=== PATIENT | male | born 1940 ===

== ENCOUNTER 2019-07-21 06:43 | Inpatient (IN) ==
[2019-07-15 11:32] LABS: Appearance,Urine CLEAR; Bilirubin,Urine NEG (NEG); Color,Urine YELLOW; Culture Indicated,Urine NO; Glucose,Urine (UA) NEGATIVE (NEG); Ketones,Urine NEG (NEG); Leukocyte Esterase,Urine NEG /uL (NEG); Nitrate,Urine NEG (NEG); Protein,Urine NEG (NEG); Urine Blood NEG mg/dL (<0.03); Urobilinogen,Urine NEG (NEG)
[2019-07-15 13:08] LABS: Basophils # (Auto) 0 K/mcL (0.0-0.3); Basophils % (Auto) 0.4 % (0.0-2.0); Eosinophils # (Auto) 0.2 K/mcL (0.0-0.7); Eosinophils % (Auto) 3.7 % (0.0-7.0); Granulocytes % (Auto) 62.9 % (38.0-78.0); Hematocrit 46.8 % (41.0-55.0); Hemoglobin 15.2 g/dL (13.5-16.5); Lymphocytes # (Auto) 1.3 K/mcL (1.5-4.8); Lymphocytes % (Auto) 21.5 % (15.5-49.0); Mean Cell Volume 89.5 fL (80.0-100.0); Mean Corpuscular HGB Conc 32.6 g/dL (31.0-36.0); Mean Platelet Volume 8.3 fL (7.4-10.4); Monocytes # (Auto) 0.7 K/mcL (0.1-0.9); Monocytes % (Auto) 11.5 % (1.0-12.0); Platelet Count 222 K/mcL (140-440); RBC 5.23 M/mcL (4.50-5.90); Red Cell Distribution Width 14.4 % (11.5-14.5); WBC 5.9 K/mcL (4.5-11.0)
[2019-07-15 13:09] LABS: Blood Urea Nitrogen 18 mg/dl (8-23); Calcium 9.2 mg/dl (8.6-10.4); Carbon Dioxide 23 mmol/L (22-30); Chloride 103 mmol/L (96-108); Glomerular Filtration Rate 86; Glucose 103 mg/dL (70-105)
[2019-07-15 13:10] LABS: INR 0.9 (0.9-1.1); Prothrombin Time 12.5 sec (11.9-14.5)
[~2019-07-21 06:43] MED LIST: CELECOXIB 200 MG CAPSULE PO SCH; IPRATROPIUM/ALBUTEROL 3 ML AMPUL.NEB NEB PRN; PREGABALIN 75 MG CAPSULE PO SCH; SCOPOLAMINE 1 PATCH PATCH TOPICAL PRN; ceFAZolin 2 GM in DEXTROSE 5% IN WATER 50 ML IV SCH; oxyCODONE 10 MG TAB.ER.12H PO SCH
[2019-07-21] MEDS ORDERED: GENTAMICIN SULFATE 800 MG/20 ML VIAL IR ONE (07:21)
[2019-07-21] MEDS ORDERED: PHENYLEPHRINE 10 MG/ML VIAL IV ONE (10:03)
[2019-07-21] MEDS ORDERED: TRANEXAMIC ACID 1,000 MG/10 ML VIAL IV ONE ×2 (10:03→11:27)
[2019-07-21] MEDS ORDERED: KETAMINE 100 MG/ML ML IV ONE (10:03)
[2019-07-21] MEDS ORDERED: ONDANSETRON 4 MG/2 ML VIAL IV ONE (10:03)
[2019-07-21] MEDS ORDERED: PROPOFOL 200 MG/20 ML VIAL IV ONE (10:03)
[2019-07-21] MEDS ORDERED: LIDOCAINE HCL/PF 100 MG/5 ML SYRINGE IV ONE (10:03)
[2019-07-21] MEDS ORDERED: DEXAMETHASONE 10 MG/ML VIAL IV ONE (10:03)
[2019-07-21] MEDS ORDERED: GLYCOPYRROLATE 0.2 MG/ML VIAL IV ONE (10:03)
[2019-07-21] MEDS ORDERED: fentaNYL 100 MCG/2 ML VIAL IV PRN (10:34)
[2019-07-21] MEDS ORDERED: ACETAMINOPHEN 1,000 MG/100 ML BOTTLE IV ONE (10:34)
[2019-07-21] MEDS ORDERED: LABETALOL 5 MG/ML ML IV PRN (10:34)
[2019-07-21] MEDS ORDERED: FLUMAZENIL 0.1 MG/ML ML IV PRN (10:34)
[2019-07-21] MEDS ORDERED: METHOCARBAMOL 1,000 MG/10 ML VIAL IV PRN (10:34)
[2019-07-21] MEDS ORDERED: NALOXONE HCL 0.4 MG/ML VIAL IV PRN (10:34)
[2019-07-21] MEDS ORDERED: BENZOCAINE/MENTHOL 1 LOZENGE PO PRN ×2 (10:34→11:27)
[2019-07-21] MEDS ORDERED: IPRATROPIUM/ALBUTEROL 3 ML AMPUL.NEB NEB PRN (10:34)
[2019-07-21] MEDS ORDERED: MEPERIDINE 25 MG/ML SYRINGE IV PRN (10:34)
[2019-07-21] MEDS ORDERED: LACTATED RINGERS 250 ML IV PRN (10:34)
[2019-07-21] MEDS ORDERED: METOPROLOL TARTRATE 5 MG/5 ML VIAL IV PRN (10:34)
[2019-07-21] MEDS ORDERED: ONDANSETRON 4 MG/2 ML VIAL IV PRN ×2 (10:34→11:27)
[2019-07-21] MEDS ORDERED: LACTATED RINGERS 1,000 ML IV SCH ×2 (10:45→11:30)
--- NOTE | 2019-07-21 11:26 | Discharge Summary ---
Ortho Discharge - JOEL - Patient Instructions Diet: Regular Diet Activity: ambulate with assistive device, weight bearing as tolerated Total Hip Protocol: Follow activity instructions as provided by Physical Therapy. Dressing Care: May shower in 2 days - Follow Up Plan Disposition: Home, Self-Care Prognosis: Good Rehab Potential: Good I certify that the patient requires SNF services: No Overall status at discharge: patient is progressing back to baseline
--- NOTE | 2019-07-21 11:26 | Brief Operative Note ---
Date of procedure: 07/21/19 Pre-op diagnosis: left hip osteoarthritis Post-op diagnosis: same Procedure: left total hip arthroplasty Grafts/Implants: Yes Anesthesia: spinal Complications: none Surgeon: Robert Oswald Tube Cleaner: Kelsea Teran Estimated blood loss (cc): 150 Specimens Removed/Pathology: none sent Condition: stable Disposition: PACU
[2019-07-21] MEDS ORDERED: POLYETHYLENE GLYCOL 3350 17 GM PACKET PO PRN (11:27)
[2019-07-21] MEDS ORDERED: MAGNESIUM HYDROXIDE 30 ML ORAL.SUSP PO PRN (11:27)
[2019-07-21] MEDS ORDERED: FLEETS ADULT ENEMA PR PRN (11:27)
[2019-07-21] MEDS ORDERED: HYDROcodone/APAP 10/325MG TABLET PO PRN (11:27)
[2019-07-21] MEDS ORDERED: METHOCARBAMOL 750 MG TABLET PO PRN (11:27)
[2019-07-21] MEDS ORDERED: ONDANSETRON 4 MG ODT TABLET SL PRN (11:27)
[2019-07-21] MEDS ORDERED: BISACODYL 10 MG SUPP.RECT PR PRN (11:27)
--- NOTE | 2019-07-21 11:49 | Operative Note ---
DATE OF OPERATION: 07/21/2019 PREOPERATIVE DIAGNOSIS: Degenerative joint disease, left hip. POSTOPERATIVE DIAGNOSIS: Degenerative joint disease, left hip. PROCEDURE: Left total hip arthroplasty. SURGEON: Monika Oswald M.D. CHANGE CONTROL MANAGER SURGEON: Kelsea Teran PA-C. The PA's assistance was required for the safe and efficient completion of the entire case. This provider's expertise and technical skill were required throughout the case. The PA assisted with preoperative coordination, intraoperative retraction, wound closure, dressing and splint application, as well as postoperative documentation and care coordination. ANESTHESIA: Spinal with LMA assist. ESTIMATED BLOOD LOSS: 150 mL. COMPLICATIONS: None noted. SPECIMENS REMOVED: None. DRAINS: None. IMPLANTS: DePuy Paris Gription acetabular shell 54 mm diameter; DePuy Deep Gap Hole Eliminator PS; DePuy Paris Altrx polyethylene acetabular liner, lipped, 32 x 54; DePuy femoral stem Actis Duofix hip prosthesis, size 6, high collar; DePuy Biolox delta ceramic femoral head +5, 32 mm diameter. INDICATIONS: The patient has had a longstanding history of worsening pain in the hip that has failed conservative treatment. Radiographs have confirmed advanced degenerative joint disease. After a long discussion about treatment options, the patient elected to proceed with a hip arthroplasty. The risks and benefits were discussed with the patient in detail including, but not limited to, the risks of anesthesia, problems with the heart or lungs related to anesthesia, infection, compromise or injury to the nerves and blood vessels, deep venous thrombosis, pulmonary embolism, pneumonia, continued pain after surgery, worsening pain or symptoms after surgery, swelling, loss of motion, instability, leg length discrepancy, and need for repeat surgery. DESCRIPTION OF PROCEDURE: The patient was seen in pre-anesthesia waiting room where all questions were answered and the correct side and site were identified and marked. The patient was then brought to the operating room and administered the anesthetic and given pre-operative antibiotics. A timeout was then called. The patient was placed in the lateral decubitus position with all prominences well-padded using the Daniel frame and the extremity was prepped and draped in the usual sterile fashion. Anesthesia gave the patient 1 gram of tranexamic acid via an intravenous route. A standard posterior approach was made. We dissected through the skin and subcutaneous tissue to the deep fascia. The deep fascia was split in line with the incision and a Charnley retractor was placed. We exposed, tagged, and incised the short external rotators and piriformis tendon and retracted them posteriorly to help protect the sciatic nerve which was palpated throughout the case. We then performed a T-capsulotomy and tagged the capsule edges. Prior to dislocating the hip, we set a length and offset gauge from a Steinmann pin in the iliac wing to a minda on the greater trochanter. The hip was then dislocated and a femoral neck osteotomy was performed to the pre-surgical templated level off the lesser trochanter. The head was removed and sized. We next turned our attention to the acetabulum. Retractors were placed for optimal visualization. A complete labral excision was performed. The capsule was preserved for later closure. We began reaming using anatomic landmarks with the DePuy Paris acetabular system. We medialized the cup and reamed up to provide good fill and coverage of the trial. When the trial was stable and appropriately positioned with approximately 20 degrees of anteversion and 45 degrees of abduction, we impacted the DePuy Paris cup and placed a cancellous screw in the posterior-superior quadrant. Osteophytes were removed from around the shell. We placed the trial liner and turned our attention to the femur. We placed retractors for visualization, internally rotated the femur, and established intramedullary access. We broached using the DePuy Tri-Lock stem to a stable platform medial, lateral, and rotationally with the appropriate version. We then performed a calcar reaming off the broach. Trials were then placed and optimized for leg length and stability. We used the leg length and offset guide to confirm our trials. Best stability, length, and offset characteristics were obtained with these sizes. We removed all trials and impacted the polyethylene acetabular liner in a standard fashion after a thorough irrigation. We then impacted the femoral stem to its broached location and placed the head. Final reduction was performed. Again, good stability, leg length, and offset characteristics were noted. We irrigated with three liters of antibiotic saline. We closed the capsule with #2 FiberWire. We closed the fascia with a combination of #2 Stratafix and 0 Vicryl. We closed the subcutaneous tissue and skin in layers out to Dermabond on the skin. A sterile pressure dressing and abduction wedge was applied. All needle and sponge counts were correct. The patient was transferred to the recovery room in stable condition. ANGY:anne marie Job ID: [id number] Doc ID: [id number] Monika Oswald MD
--- NOTE | 2019-07-21 12:39 | XRay Report ---
CLINICAL INFORMATION: Post-Op Total Hip COMPARISON: None. FINDINGS: Left total hip prostheses is anatomically aligned. There is no osseous abnormality. Right hip joint is unremarkable. Soft tissue swelling over the left hip appreciated IMPRESSION: Left total hip prostheses anatomically aligned. Interpreted and Authenticated by: Robert Lizama 07/21/19
[2019-07-21] MEDS ORDERED: 0.9 % SODIUM CHLORIDE 10 ML SYRINGE IV SCH (14:00)
[2019-07-21] MEDS ORDERED: ceFAZolin 1 GM VIAL IV SCH (18:00)
[2019-07-21] MEDS ORDERED: SENNOSIDES 1 TABLET PO SCH (21:00)
[2019-07-21] MEDS ORDERED: ASPIRIN 81 MG TAB.CHEW PO SCH (21:00)
[2019-07-21] MEDS ORDERED: SIMVASTATIN 20 MG TABLET PO SCH (21:00)
[2019-07-21] MEDS ORDERED: DOCUSATE SODIUM 100 MG CAPSULE PO SCH (21:00)
== END 2019-07-21 18:30 | disposition home or self-care (01) | DRG 470 ==
LOC: MEDSUR 06:43
PROVIDERS: ADMIT Orthopaedic Surgery Sports Medicine; ATTEND Orthopaedic Surgery Sports Medicine